=== PATIENT | female | born 1965 | race Two or more races ===

== ENCOUNTER 2017-07-06 10:28 | Observation (INO) | payer OTHER ==
[~2017-07-06] VITALS: Ht 162.6 cm; Wt 73.9 kg
[~2017-07-06 10:28] MED LIST: ALBU90OI INH; AMOCLA875 PO; CYCL10 PO; IBUP800 PO; LEVSOD100 PO; Neurontin 100100 MG PO; PRED20 PO; ZESTORETIC 20-121 EA PO
[2017-07-06 12:14] LABS: BASOPHILS ABSOLUTE AUTO 0.04 K/mm3 (0.00-0.23); BASOPHILS PERCENT AUTO 1 % (0-2); EOSINOPHILS PERCENT AUTO 6 % (0-6); Hematocrit 35.7 % (33.0-51.0); Hemoglobin 12.3 g/dL (11.5-16.0); IMMATURE GRAN ABSOLUTE AUTO 0.02 K/mm3 (0.00-0.10); IMMATURE GRAN PERCENT AUTO 0 % (0-1); LYMPHOCYTES ABSOLUTE AUTO 3.12 K/mm3 (0.84-5.20); LYMPHOCYTES PERCENT AUTO 35 % (21-46); MONOCYTES ABSOLUTE AUTO 0.54 K/mm3 (0.16-1.47); MONOCYTES PERCENT AUTO 6 % (4-13); Mean Corpuscular HGB 30.8 pg (26.0-34.0); Mean Corpuscular HGB Conc 34.5 g/dL (31.5-36.5); Mean Corpuscular Volume 89 fL (80-100); Mean Platelet Volume 8.7 fL (9.1-12.4); NEUTROPHILS ABSOLUTE AUTO 4.65 K/mm3 (1.96-9.15); NEUTROPHILS PERCENT AUTO 52 % (41-73); Platelet Count 400 K/mm3 (150-400); RDW Coefficient Variation 12.5 % (11.7-14.2); RDW Standard Deviation 40.6 fL (35.1-46.3); White Blood Cell Count 8.87 K/mm3 (4.00-11.30)
[2017-07-06 12:22] LABS: Alanine Aminotransfer (ALT/SGP 21 U/L (12-78); Albumin, Blood 3.8 g/dL (3.4-5.0); Albumin/Globulin Ratio 1.2 (0.8-1.8); Alk Phos 89 U/L (50-136); Anion Gap 5 mmol/L (6-16); Aspartate Aminotrans (AST/SGOT 17 U/L (12-37); Bilirubin, Total 0.3 mg/dL (0.1-1.0); Blood Urea Nitrogen 9 mg/dL (8-24); Bun/Creatinine Ratio 12.2 (12.0-20.0); CO2, Blood 26 mmol/L (21-32); Chloride, Blood 104 mmol/L (98-108); Creatinine, Blood 0.74 mg/dL (0.40-1.00); Globulin, Blood 3.3 g/dL (2.2-4.0); Glomerular Filtration Rate >60 (60-); Glucose, Blood 84 mg/dL (70-99); Potassium, Blood 4.2 mmol/L (3.5-5.5); Sodium, Blood 135 mmol/L (136-145); Total Protein, Blood 7.1 g/dL (6.4-8.2)
[2017-07-07] MEDS ORDERED: HYDMOR2 PO (11:55)
[2017-07-07] MEDS ORDERED: Augmentin 875-1 EACH PO (11:56)
[2017-07-07] MEDS ORDERED: ONDA4ODT PO (11:56)
[2018-03-16] MEDS ORDERED: IBUP400 PO (15:01)
== END 2017-07-07 13:30 | disposition home or self-care (01) ==
LOC: ER 10:28 → SURS 10:29 → ER 12:57 → SURS 14:26
PROVIDERS: Internal Medicine; Surgery
PROC: 0DTJ4ZZ Resection of Appendix, Percutaneous Endoscopic Approach (ICD-10-PCS; principal; 2017-07-06 16:30)
DX: K35.80 Unspecified acute appendicitis (principal); I10 Essential (primary) hypertension; J45.909 Unspecified asthma, uncomplicated; E03.9 Hypothyroidism, unspecified; F17.210 Nicotine dependence, cigarettes, uncomplicated; Z98.890 Other specified postprocedural states; Z79.899 Other long term (current) drug therapy
CPT/HCPCS: 36415; 74177; 80053; 81000; 83690; 85025; 88304; 94760; 96374; 96375; 99285; G0378; J0295; J1100; J1170; J1885; J2270; J2405; J2710; J3010; J7030; J7050; J7120; Q9967

== ENCOUNTER 2017-10-13 11:28 | Emergency (ER) | payer OTHER ==
[~2017-10-13] VITALS: Ht 162.6 cm; Wt 73.9 kg
[~2017-10-13 11:28] MED LIST changes: +Augmentin 875-1 EACH PO; +HYDMOR2 PO; +ONDA4ODT PO
[2017-10-13] MEDS ORDERED: LISI20 PO (11:55)
[2017-10-13] MEDS ORDERED: RANI150 PO (11:56)
[2017-10-13] MEDS ORDERED: BUSP15 PO (11:58)
[2017-10-13] MEDS ORDERED: OXCA150 PO (11:58)
[2017-10-13] MEDS ORDERED: VENL75ER PO (12:00)
== END 2017-10-13 14:48 | disposition home or self-care (01) ==
LOC: ER 11:28
DX: R51 Headache (principal); I10 Essential (primary) hypertension; Z88.5 Allergy status to narcotic agent; Z88.8 Allergy status to other drugs, medicaments and biological substances; Z79.899 Other long term (current) drug therapy; Z79.2 Long term (current) use of antibiotics; J45.909 Unspecified asthma, uncomplicated; F17.200 Nicotine dependence, unspecified, uncomplicated
CPT/HCPCS: 36415; 93005; 93010; 96374; 96375; 99283; J1200; J1885; J2405; J2765

== ENCOUNTER 2019-02-26 10:34 | Emergency (ER) | payer OTHER ==
[~2019-02-26] VITALS: Ht 160 cm; Wt 73.9 kg
[~2019-02-26 10:34] MED LIST changes: +BUSP15 PO; +IBUP400 PO; +LISI20 PO; +OXCA150 PO; +RANI150 PO; +VENL75ER PO
[2019-02-26] MEDS ORDERED: Synthroid137 MCG PO (10:45)
[2019-02-26] MEDS ORDERED: FLUTICASONE-SA1 EAC4 INH (10:46)
[2019-02-26] MEDS ORDERED: GABA300 PO (10:46)
[2019-02-26] MEDS ORDERED: Ranitidine HCl300 MG PO (10:47)
[2019-02-26] MEDS ORDERED: ZESTORETIC 20-251 EA PO (10:48)
[2019-02-26] MEDS ORDERED: Buspirone HCl7.5 MG PO (10:48)
[2019-02-26] MEDS ORDERED: AMLO10 PO (10:49)
[2019-02-26] MEDS ORDERED: NAPR500 PO (10:49)
[2019-02-26] MEDS ORDERED: OXCA150 PO (10:51)
== END 2019-02-26 14:05 | disposition home or self-care (01) ==
LOC: ER 10:34
DX: S09.90XA Unspecified injury of head, initial encounter (principal); S70.01XA Contusion of right hip, initial encounter; I10 Essential (primary) hypertension; F17.210 Nicotine dependence, cigarettes, uncomplicated; Z88.5 Allergy status to narcotic agent; Z88.8 Allergy status to other drugs, medicaments and biological substances; Z79.899 Other long term (current) drug therapy; W07.XXXA Fall from chair, initial encounter
CPT/HCPCS: 70450; 73502; 99284-25; A9270

== ENCOUNTER 2020-08-23 13:26 | Emergency (ER) | payer OTHER ==
[~2020-08-23] VITALS: Ht 160 cm; Wt 70.8 kg
[~2020-08-23 13:26] MED LIST changes: +AMLO10 PO; +Buspirone HCl7.5 MG PO; +FLUTICASONE-SA1 EAC4 INH; +GABA300 PO; +HYDACE25S PR; +NAPR500 PO; +ONDA4ODT MM; +Ranitidine HCl300 MG PO; +Synthroid137 MCG PO; +ZESTORETIC 20-251 EA PO
== END 2020-08-23 15:48 | disposition home or self-care (01) ==
LOC: ER 13:26
DX: S16.1XXA Strain of muscle, fascia and tendon at neck level, initial encounter (principal); I10 Essential (primary) hypertension; F17.200 Nicotine dependence, unspecified, uncomplicated; Z79.899 Other long term (current) drug therapy; Z88.5 Allergy status to narcotic agent; Z88.6 Allergy status to analgesic agent; V43.52XA Car driver injured in collision with other type car in traffic accident, initial encounter; Y92.410 Unspecified street and highway as the place of occurrence of the external cause
CPT/HCPCS: 72040; 99284-25

== ENCOUNTER → 2020-10-11 | Outpatient (CLI) | payer OTHER ==
[~2020-10-11] MED LIST changes: +Vibramycin100 MG PO
[2020-10-11 20:30] LABS: Alanine Aminotransfer (ALT/SGP 25 U/L (12-78); Albumin/Globulin Ratio 1.2 (0.8-1.8); Alk Phos 65 U/L (50-136); Anion Gap 7 mmol/L (6-16); Aspartate Aminotrans (AST/SGOT 26 U/L (12-37); Bilirubin, Total 0.4 mg/dL (0.1-1.0); Blood Urea Nitrogen 19 mg/dL (8-24); Bun/Creatinine Ratio 23.8 (12.0-20.0); CO2, Blood 26 mmol/L (21-32); Calcium, Blood 9.5 mg/dL (8.5-10.1); Chloride, Blood 104 mmol/L (98-108); Ferritin, Serum 66 ng/mL (8-252); Globulin, Blood 3.2 g/dL (2.2-4.0); Glomerular Filtration Rate >60 (60-); Glucose, Blood 114 mg/dL (70-99); Iron Serum 59 ug/dL (50-170); Percent Saturation 23.1 % (15.0-50.0); Phosphorus, Blood 3.6 mg/dL (2.5-4.9); Potassium, Blood 3.2 mmol/L (3.5-5.5); Sodium, Blood 137 mmol/L (136-145); Total Iron Binding Capacity 255 ug/dL (250-450); Total Protein, Blood 7.2 g/dL (6.4-8.2)
== END | disposition home or self-care (01) ==
LOC: PLD 19:06 → LAB SHORT 19:06
PROVIDERS: Internal Medicine Hematology & Oncology
DX: D47.3 Essential (hemorrhagic) thrombocythemia (principal)
CPT/HCPCS: 80053; 82607; 82728; 82746; 83540; 83550; 84100

== ENCOUNTER 2021-01-07 01:19 | Emergency (ER) | payer OTHER ==
[~2021-01-07] VITALS: Ht 165.1 cm; Wt 65.8 kg
[~2021-01-07 01:19] MED LIST changes: -Vibramycin100 MG PO
[2021-01-07 02:20] LABS: BASOPHILS ABSOLUTE AUTO 0.06 K/mm3 (0.00-0.23); BASOPHILS PERCENT AUTO 0 % (0-2); EOSINOPHILS ABSOLUTE AUTO 0.13 K/mm3 (0.00-0.68); EOSINOPHILS PERCENT AUTO 1 % (0-6); Hematocrit 27.8 % (33.0-51.0); Hemoglobin 9.7 g/dL (11.5-16.0); IMMATURE GRAN ABSOLUTE AUTO 0.48 K/mm3 (0.00-0.10); IMMATURE GRAN PERCENT AUTO 2 % (0-1); LYMPHOCYTES ABSOLUTE AUTO 1.92 K/mm3 (0.84-5.20); LYMPHOCYTES PERCENT AUTO 10 % (21-46); MONOCYTES ABSOLUTE AUTO 1.66 K/mm3 (0.16-1.47); MONOCYTES PERCENT AUTO 8 % (4-13); Mean Corpuscular HGB Conc 34.9 g/dL (31.5-36.5); Mean Corpuscular Volume 89 fL (80-100); Mean Platelet Volume 8.4 fL (9.1-12.4); NEUTROPHILS ABSOLUTE AUTO 15.57 K/mm3 (1.96-9.15); NEUTROPHILS PERCENT AUTO 79 % (41-73); Platelet Count 471 K/mm3 (150-400); RDW Standard Deviation 38.8 fL (35.1-46.3); Red Blood Cell Count 3.13 M/mm3 (3.80-5.20); White Blood Cell Count 19.82 K/mm3 (4.00-11.30)
[2021-01-07 02:38] LABS: Source, Urine Clean Catch
[2021-01-07 02:38] LABS: Alanine Aminotransfer (ALT/SGP 15 U/L (12-78); Albumin, Blood 3.2 g/dL (3.4-5.0); Albumin/Globulin Ratio 0.8 (0.8-1.8); Alk Phos 74 U/L (50-136); Anion Gap 9 mmol/L (6-16); Aspartate Aminotrans (AST/SGOT 13 U/L (12-37); Bilirubin, Total 0.4 mg/dL (0.1-1.0); Blood Urea Nitrogen 10 mg/dL (8-24); CO2, Blood 23 mmol/L (21-32); Calcium, Blood 8.7 mg/dL (8.5-10.1); Chloride, Blood 91 mmol/L (98-108); Creatinine, Blood 0.67 mg/dL (0.40-1.00); Glomerular Filtration Rate >60 (60-); Glucose, Blood 142 mg/dL (70-99); Potassium, Blood 3.6 mmol/L (3.5-5.5); Sodium, Blood 123 mmol/L (136-145); Total Protein, Blood 7.2 g/dL (6.4-8.2)
[2021-01-07 02:42] LABS: Appearance, Urine Clear (Clear); Bilirubin, Urine Neg (Neg); Blood, Urine Neg (Neg); Color, Urine Yellow (P-Yellow); Glucose Qualitative, Urine Neg (Neg); Ketones, Urine Neg (Neg); Leukocyte Esterase, Urine 1+ (Neg); Nitrite, Urine Neg (Neg); Protein, Urine 1+ (Neg); Urobilinogen, Urine NORM (Normal)
[2021-01-07 02:48] LABS: Bacteria Mod /hpf; Red Blood Cells, Urine 0-2 /hpf (0-2); Squamous Epithelial Cells Many /hpf (Few)
[2021-01-07] MEDS ORDERED: Vibramycin100 MG PO (06:01)
== END 2021-01-07 06:40 | disposition home or self-care (01) ==
LOC: ER 01:19
PROVIDERS: Student in an Organized Health Care Education/Training Program
DX: R10.11 Right upper quadrant pain (principal); I10 Essential (primary) hypertension; F17.200 Nicotine dependence, unspecified, uncomplicated; Z88.6 Allergy status to analgesic agent; Z88.5 Allergy status to narcotic agent
CPT/HCPCS: 71045; 74177; 76705; 80053; 81001; 83690; 85025; 87086; 96374-59; 96375; 99284-25; A9270; J1885; J2270; Q9967

== ENCOUNTER 2021-02-09 12:51 | Inpatient (IN) | payer MEDICARE, OTHER ==
[~2021-02-09] VITALS: Ht 160 cm; Wt 68.0 kg
[~2021-02-09 12:51] MED LIST changes: -ALBU90OI INH; -AMLO10 PO; -Buspirone HCl7.5 MG PO; -FLUTICASONE-SA1 EAC4 INH; -GABA300 PO; -OXCA150 PO; -Synthroid137 MCG PO; -VENL75ER PO; +Vibramycin100 MG PO; -ZESTORETIC 20-251 EA PO
[2021-02-09] MEDS ORDERED: ACYC400 PO (13:27)
[2021-02-09] MEDS ORDERED: VENL75ER PO ×2 (13:33→15:45)
[2021-02-09 14:23] LABS: BASOPHILS ABSOLUTE AUTO 0.07 K/mm3 (0.00-0.23); BASOPHILS PERCENT AUTO 0 % (0-2); EOSINOPHILS ABSOLUTE AUTO 0.45 K/mm3 (0.00-0.68); EOSINOPHILS PERCENT AUTO 2 % (0-6); Hematocrit 27.6 % (33.0-51.0); Hemoglobin 9.1 g/dL (11.5-16.0); IMMATURE GRAN ABSOLUTE AUTO 0.09 K/mm3 (0.00-0.10); IMMATURE GRAN PERCENT AUTO 1 % (0-1); LYMPHOCYTES ABSOLUTE AUTO 1.75 K/mm3 (0.84-5.20); LYMPHOCYTES PERCENT AUTO 9 % (21-46); MONOCYTES ABSOLUTE AUTO 1.26 K/mm3 (0.16-1.47); MONOCYTES PERCENT AUTO 6 % (4-13); Mean Corpuscular Volume 94 fL (80-100); Mean Platelet Volume 8.9 fL (9.1-12.4); NEUTROPHILS ABSOLUTE AUTO 16.04 K/mm3 (1.96-9.15); NEUTROPHILS PERCENT AUTO 82 % (41-73); Platelet Count 466 K/mm3 (150-400); RDW Coefficient Variation 13.1 % (11.7-14.2); RDW Standard Deviation 44.9 fL (35.1-46.3); Red Blood Cell Count 2.94 M/mm3 (3.80-5.20); White Blood Cell Count 19.66 K/mm3 (4.00-11.30)
[2021-02-09 14:45] LABS: Alanine Aminotransfer (ALT/SGP 18 U/L (12-78); Albumin, Blood 3.1 g/dL (3.4-5.0); Albumin/Globulin Ratio 0.7 (0.8-1.8); Alk Phos 84 U/L (50-136); Anion Gap 6 mmol/L (6-16); Aspartate Aminotrans (AST/SGOT 13 U/L (12-37); Bilirubin, Total 0.5 mg/dL (0.1-1.0); Blood Urea Nitrogen 24 mg/dL (8-24); Bun/Creatinine Ratio 18.5 (12.0-20.0); CO2, Blood 26 mmol/L (21-32); Calcium, Blood 8.6 mg/dL (8.5-10.1); Chloride, Blood 101 mmol/L (98-108); Ethanol (Alcohol), Blood, Med <3 mg/dL; Globulin, Blood 4.2 g/dL (2.2-4.0); Glomerular Filtration Rate 42 (60-); Glucose, Blood 111 mg/dL (70-99); Potassium, Blood 4.4 mmol/L (3.5-5.5); Sodium, Blood 133 mmol/L (136-145); Total Protein, Blood 7.3 g/dL (6.4-8.2)
[2021-02-09 14:50] LABS: Base Excess Venous -0.1 mmol/L; PO2 Venous 60.3 mmHg (38-42); pH Blood Venous 7.32 (7.34-7.37)
[2021-02-09] MEDS ORDERED: OXYC10TA19 PO (15:28)
[2021-02-09] MEDS ORDERED: CYCL10 PO (15:29)
[2021-02-09] MEDS ORDERED: OMEP20ER PO (15:30)
[2021-02-09] MEDS ORDERED: Cetirizine HCl10 MG PO (15:31)
[2021-02-09] MEDS ORDERED: FLUTICASONE-SA1 EAC9 INH (15:32)
[2021-02-09] MEDS ORDERED: OXCARBAZEPINE150 M1 PO ×2 (15:33)
[2021-02-09] MEDS ORDERED: PREMPRO PO (15:35)
[2021-02-09] MEDS ORDERED: SPIR25 PO (15:36)
[2021-02-09] MEDS ORDERED: GABA300 PO (15:37)
[2021-02-09] MEDS ORDERED: ESCI10 PO (15:37)
[2021-02-09] MEDS ORDERED: Buspirone HCl7.5 MG PO (15:37)
[2021-02-09] MEDS ORDERED: LEVSOD112 PO (15:40)
[2021-02-09] MEDS ORDERED: ALBU90OI INH (15:46)
[2021-02-09] MEDS ORDERED: AMLO10 PO (15:48)
[2021-02-09] MEDS ORDERED: ZESTORETIC 20-251 EA PO (15:49)
[2021-02-09] MEDS ORDERED: NAPR500 PO (15:50)
[2021-02-09 17:15] LABS: Source, Urine Clean Catch
[2021-02-09 17:20] LABS: Appearance, Urine Hazy (Clear); Blood, Urine Neg (Neg); Color, Urine Yellow (P-Yellow); Glucose Qualitative, Urine Neg (Neg); Ketones, Urine Neg (Neg); Leukocyte Esterase, Urine 1+ (Neg); Nitrite, Urine Neg (Neg); Protein, Urine 1+ (Neg); Urobilinogen, Urine NORM (Normal)
[2021-02-09 17:48] LABS: SARS-Cov-2 (COVID-19) PCR, MMC NEGATIVE (NEGATIVE)
[2021-02-09 18:09] LABS: Bilirubin, Urine 1+ (Neg)
[2021-02-09 18:12] LABS: Bacteria Mod /hpf; Calcium Oxalate Crystals Rare /hpf; Red Blood Cells, Urine Not Seen /hpf (0-2); Squamous Epithelial Cells Mod /hpf (Few)
[2021-02-09 18:38] LABS: U Amphetamine Screen DETECTED; U Barbituate Screen Not Detected; U Benzodiazapine Screen Not Detected; U Buprenorphine Screen Not Detected; U Cannabinoids Screen Not Detected; U Cocaine Screen Not Detected; U Methadone Screen Not Detected; U Methamphetamine Screen DETECTED; U Opiates Screen Not Detected; U Oxycodone Screen DETECTED; U Phencyclidine Screen Not Detected; U Propoxyphene Screen Not Detected
[2021-02-10 00:21] LABS: Adenovirus Not Detected (NOT DETECT); Bordetella pertussis Not Detected (NOT DETECT); Chlamydophila pneumoniae Not Detected (NOT DETECT); Coronavirus 229E Not Detected (NOT DETECT); Coronavirus HKU1 Not Detected (NOT DETECT); Coronavirus NL63 Not Detected (NOT DETECT); Coronavirus OC43 Not Detected (NOT DETECT); Human Metapneumovirus Not Detected (NOT DETECT); Human Rhinovirus/Enterovirus Not Detected (NOT DETECT); Influenza A/2009-H1 Not Detected (NOT DETECT); Influenza A/H1 Not Detected (NOT DETECT); Influenza A/H3 Not Detected (NOT DETECT); Influenza B Not Detected (NOT DETECT); Mycoplasma pneumoniae Not Detected (NOT DETECT); Parainfluenza Virus 1 Not Detected (NOT DETECT); Parainfluenza Virus 2 Not Detected (NOT DETECT); Parainfluenza Virus 3 Not Detected (NOT DETECT); Parainfluenza Virus 4 Not Detected (NOT DETECT); Respiratory Syncytial Virus Not Detected (NOT DETECT); SARS-Cov-2 (COVID-19), BioFire Not Detected (NOT DETECT)
[2021-02-10 05:53] LABS: Hematocrit 26.5 % (33.0-51.0); Hemoglobin 8.7 g/dL (11.5-16.0); Mean Corpuscular HGB 30.6 pg (26.0-34.0); Mean Corpuscular HGB Conc 32.8 g/dL (31.5-36.5); Mean Corpuscular Volume 93 fL (80-100); Mean Platelet Volume 8.7 fL (9.1-12.4); Platelet Count 440 K/mm3 (150-400); RDW Coefficient Variation 12.4 % (11.7-14.2); RDW Standard Deviation 42.8 fL (35.1-46.3); Red Blood Cell Count 2.84 M/mm3 (3.80-5.20); White Blood Cell Count 23.97 K/mm3 (4.00-11.30)
--- NOTE | 2021-02-10 05:55 | NUR ---
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 PT AAOX4, VERY SLEEPY THROUGH THE NIGHT BUT WAKES UP EASILY AND IS ABLE TO CONVERSE AND MAKE NEEDS KNOWN APPROPRIATELY. DENIES COUGH. PT STATES SHE FEELS MUCH IMPROVED AND REPORTED THAT PRIOR TO ADMISSION SHE WAS "VERY LOOPY AND COULD BARELY GET OUT OF BED". PT IS A STANDBY ASSIST UP TO THE BATHROOM. VSS, WILL CONTINUE TO MONITOR.
[2021-02-10 06:11] LABS: BAND PERCENT MAN 15 % (0-8); BASOPHILS PERCENT MAN 0 % (0-2); EOSINOPHILS PERCENT MAN 0 % (0-6); LYMPHOCYTES ABSOLUTE MAN 0.71 K/mm3 (0.84-5.20); LYMPHOCYTES PERCENT MAN 3 % (21-46); MONOCYTES ABSOLUTE MAN 0.47 K/mm3 (0.16-1.47); MONOCYTES PERCENT MAN 2 % (4-13); NEUTROPHILS ABSOLUTE MAN 22.77 K/mm3 (1.96-9.15); SEG NEUTROPHILS PERCENT MAN 80 % (41-73); TOTAL CELLS COUNTED 100
[2021-02-10 06:22] LABS: Anion Gap 6 mmol/L (6-16); Blood Urea Nitrogen 22 mg/dL (8-24); Bun/Creatinine Ratio 28.7 (12.0-20.0); CO2, Blood 22 mmol/L (21-32); Calcium, Blood 7.9 mg/dL (8.5-10.1); Chloride, Blood 106 mmol/L (98-108); Creatinine, Blood 0.77 mg/dL (0.40-1.00); Glomerular Filtration Rate >60 (60-); Glucose, Blood 110 mg/dL (70-99); Potassium, Blood 4.7 mmol/L (3.5-5.5); Sodium, Blood 134 mmol/L (136-145); Thyroid Stimulating Hormone 0.179 uIU/mL (0.360-4.800)
[2021-02-10 14:30] LABS: BASOPHILS ABSOLUTE AUTO 0.05 K/mm3 (0.00-0.23); BASOPHILS PERCENT AUTO 0 % (0-2); EOSINOPHILS ABSOLUTE AUTO 0.06 K/mm3 (0.00-0.68); EOSINOPHILS PERCENT AUTO 0 % (0-6); Hematocrit 26.1 % (33.0-51.0); Hemoglobin 8.5 g/dL (11.5-16.0); IMMATURE GRAN ABSOLUTE AUTO 0.31 K/mm3 (0.00-0.10); IMMATURE GRAN PERCENT AUTO 1 % (0-1); LYMPHOCYTES ABSOLUTE AUTO 2.19 K/mm3 (0.84-5.20); LYMPHOCYTES PERCENT AUTO 8 % (21-46); MONOCYTES ABSOLUTE AUTO 1.09 K/mm3 (0.16-1.47); MONOCYTES PERCENT AUTO 4 % (4-13); Mean Corpuscular HGB 30.2 pg (26.0-34.0); Mean Corpuscular HGB Conc 32.6 g/dL (31.5-36.5); Mean Corpuscular Volume 93 fL (80-100); Mean Platelet Volume 8.9 fL (9.1-12.4); NEUTROPHILS ABSOLUTE AUTO 23.82 K/mm3 (1.96-9.15); NEUTROPHILS PERCENT AUTO 87 % (41-73); Platelet Count 456 K/mm3 (150-400); RDW Coefficient Variation 12.8 % (11.7-14.2); RDW Standard Deviation 43.9 fL (35.1-46.3); Red Blood Cell Count 2.81 M/mm3 (3.80-5.20); White Blood Cell Count 27.52 K/mm3 (4.00-11.30)
--- NOTE | 2021-02-10 18:16 | NUR ---
SHIFT SUMMARY NO ACUTE CHANGES DURING SHIFT. PT ALERT AND ORIENTATED X4. PATIENT HAS BEEN SLEEPY THROUGHOUT SHIFT. PATIENT HAS AMBULATED ABOUT 50 FEET WITH PULSE OX NOT GOING UNDER 96%. NOTIFIED DR GEORGE OF RESULTS. PATIENT WEAK THROUGHOUT AMBULATION. VITAL SIGNS REVIEWED. PATIENT IS A STANDBY ASSIST UP TO THE BATHROOM. WILL CONTINUE TO MONITOR UNTIL END OF SHIFT.
--- NOTE | 2021-02-11 04:47 | NUR ---
SHIFT SUMMARY ADMITTED FOR PNEUMONIA/WEAKNESS. FULL CODE. PLAN IS TO RE-CHECK ELEVATED WBC LABS. IF THEY ARE TRENDING DOWN, SHE MAY DC TODAY. IV ANTIBIOTICS ARE SCHEDULED. SHE IS ON RA. SHE USES A FWW @ HOME. SHE IS A STANDBY ASSIST W/BRP. SHE IS A&O X4. REGULAR DIET. NO NEW CONCERNS THIS SHIFT.
[2021-02-11 05:32] LABS: Hematocrit 26.3 % (33.0-51.0); Hemoglobin 8.7 g/dL (11.5-16.0); Mean Corpuscular HGB 30.3 pg (26.0-34.0); Mean Corpuscular HGB Conc 33.1 g/dL (31.5-36.5); Mean Corpuscular Volume 92 fL (80-100); Mean Platelet Volume 8.7 fL (9.1-12.4); Platelet Count 453 K/mm3 (150-400); RDW Coefficient Variation 12.6 % (11.7-14.2); RDW Standard Deviation 42.5 fL (35.1-46.3); Red Blood Cell Count 2.87 M/mm3 (3.80-5.20); White Blood Cell Count 18.95 K/mm3 (4.00-11.30)
[2021-02-11 05:56] LABS: BAND PERCENT MAN 2 % (0-8); BASOPHILS ABSOLUTE MAN 0.37 K/mm3 (0.00-0.23); BASOPHILS PERCENT MAN 2 % (0-2); EOSINOPHILS ABSOLUTE MAN 0.56 K/mm3 (0.00-0.68); EOSINOPHILS PERCENT MAN 3 % (0-6); LYMPHOCYTES ABSOLUTE MAN 3.79 K/mm3 (0.84-5.20); LYMPHOCYTES PERCENT MAN 20 % (21-46); MONOCYTES ABSOLUTE MAN 0.37 K/mm3 (0.16-1.47); MONOCYTES PERCENT MAN 2 % (4-13); NEUTROPHILS ABSOLUTE MAN 13.83 K/mm3 (1.96-9.15); SEG NEUTROPHILS PERCENT MAN 71 % (41-73); TOTAL CELLS COUNTED 100
[2021-02-11 06:06] LABS: Anion Gap 5 mmol/L (6-16); Blood Urea Nitrogen 18 mg/dL (8-24); Bun/Creatinine Ratio 24.7 (12.0-20.0); CO2, Blood 24 mmol/L (21-32); Chloride, Blood 105 mmol/L (98-108); Creatinine, Blood 0.73 mg/dL (0.40-1.00); Glomerular Filtration Rate >60 (60-); Glucose, Blood 90 mg/dL (70-99); Potassium, Blood 4.1 mmol/L (3.5-5.5); Sodium, Blood 134 mmol/L (136-145)
[2021-02-11] MEDS ORDERED: VISBIOME 112.51 EACH PO (11:41)
[2021-02-11] MEDS ORDERED: DOXY100 PO (11:42)
--- NOTE | 2021-02-11 14:39 | NUR ---
1419 PT DISCHARGED HOME VIA PERSONAL VEHICLE ACCOMPANIED AND DRIVEN BY FAMILY. ESCORTED TO ENTRANCE BY CARRY OUT CLERK AND SHELF STOCKER. IV REMOVED. D/C INSTRUCTIONS REVIEWED WITH PT AND COPY PROVIDED. LUNGS CLEAR ON RA. NO NEW CHANGES OR CONCERNS.
== END 2021-02-11 14:18 | disposition home or self-care (01) | DRG 871 ==
LOC: ER 12:51 → MEDS 18:18 → ERHOLD 18:18 → MEDS 18:45
PROVIDERS: Internal Medicine; Student in an Organized Health Care Education/Training Program; ADMIT Internal Medicine
DX: A41.9 Sepsis, unspecified organism (principal); J18.9 Pneumonia, unspecified organism; G92 Toxic encephalopathy; J44.0 Chronic obstructive pulmonary disease with (acute) lower respiratory infection; N17.9 Acute kidney failure, unspecified; J44.1 Chronic obstructive pulmonary disease with (acute) exacerbation; E87.2 Acidosis; E87.1 Hypo-osmolality and hyponatremia; T43.621A Poisoning by amphetamines, accidental (unintentional), initial encounter; G89.29 Other chronic pain; E86.0 Dehydration; Z20.822 Contact with and (suspected) exposure to COVID-19; E86.1 Hypovolemia; F43.10 Post-traumatic stress disorder, unspecified; F41.9 Anxiety disorder, unspecified; I12.9 Hypertensive chronic kidney disease with stage 1 through stage 4 chronic kidney disease, or unspecified chronic kidney disease; I95.89 Other hypotension; E03.9 Hypothyroidism, unspecified; F32.9 Major depressive disorder, single episode, unspecified; R65.20 Severe sepsis without septic shock; D72.829 Elevated white blood cell count, unspecified; T38.0X5A Adverse effect of glucocorticoids and synthetic analogues, initial encounter; F15.10 Other stimulant abuse, uncomplicated; D63.1 Anemia in chronic kidney disease; R47.81 Slurred speech; N18.9 Chronic kidney disease, unspecified; Z88.6 Allergy status to analgesic agent; Z88.5 Allergy status to narcotic agent; Z98.890 Other specified postprocedural states; Z79.899 Other long term (current) drug therapy; Z79.51 Long term (current) use of inhaled steroids; Z90.49 Acquired absence of other specified parts of digestive tract; Z87.891 Personal history of nicotine dependence; Z79.891 Long term (current) use of opiate analgesic
CPT/HCPCS: 0202U; 36415; 71045; 80048; 80053; 81001; 82803; 82947; 83605; 84145; 84443; 85007; 85025; 85027; 87040; 87086; 93005; 93010; 94640; 94664; 94760; 96361; 96365; 96375; 99285-25; A9270; G0480; J0696; J1650; J2310; J2930; J7030; J7060; U0004

== ENCOUNTER 2022-08-11 20:58 | Inpatient (IN) | payer MEDICARE, OTHER ==
[~2022-08-11] VITALS: Ht 160 cm; Wt 84.5 kg
[~2022-08-11 20:58] MED LIST changes: +ACYC400 PO; +ALBU90OI INH; +AMLO10 PO; +Buspirone HCl7.5 MG PO; +Cetirizine HCl10 MG PO; +DOXY100 PO; +ESCI10 PO; +FLUTICASONE-SA1 EAC9 INH; +GABA300 PO; +LEVSOD112 PO; +OMEP20ER PO; +OXCARBAZEPINE150 M1 PO; +OXYC10TA19 PO; +PREMPRO PO; +SPIR25 PO; +VENL75ER PO; +VISBIOME 112.51 EACH PO; +ZESTORETIC 20-251 EA PO
[2022-08-11 21:44] LABS: BASOPHILS ABSOLUTE AUTO 0.08 K/mm3 (0.00-0.23); BASOPHILS PERCENT AUTO 1 % (0-2); EOSINOPHILS ABSOLUTE AUTO 0.45 K/mm3 (0.00-0.68); EOSINOPHILS PERCENT AUTO 3 % (0-6); Hematocrit 33.4 % (33.0-51.0); IMMATURE GRAN ABSOLUTE AUTO 0.22 K/mm3 (0.00-0.10); IMMATURE GRAN PERCENT AUTO 1 % (0-1); LYMPHOCYTES ABSOLUTE AUTO 2.89 K/mm3 (0.84-5.20); LYMPHOCYTES PERCENT AUTO 18 % (21-46); MONOCYTES ABSOLUTE AUTO 1.22 K/mm3 (0.16-1.47); MONOCYTES PERCENT AUTO 8 % (4-13); Mean Corpuscular HGB 30.6 pg (26.0-34.0); Mean Corpuscular HGB Conc 35.9 g/dL (31.5-36.5); Mean Corpuscular Volume 85 fL (80-100); Mean Platelet Volume 8.2 fL (9.1-12.4); NEUTROPHILS ABSOLUTE AUTO 11.13 K/mm3 (1.96-9.15); NEUTROPHILS PERCENT AUTO 70 % (41-73); Platelet Count 528 K/mm3 (150-400); RDW Coefficient Variation 11.9 % (11.7-14.2); RDW Standard Deviation 36.9 fL (35.1-46.3); Red Blood Cell Count 3.92 M/mm3 (3.80-5.20); White Blood Cell Count 15.99 K/mm3 (4.00-11.30)
[2022-08-11 21:58] LABS: Albumin, Blood 3.7 g/dL (3.4-5.0); Bilirubin, Total 0.2 mg/dL (0.1-1.0); Calcium, Blood 9.2 mg/dL (8.5-10.1); Creatinine, Blood 0.59 mg/dL (0.40-1.00); Globulin, Blood 3.8 g/dL (2.2-4.0); Potassium, Blood 4.5 mmol/L (3.5-5.5); Total Protein, Blood 7.5 g/dL (6.4-8.2)
--- NOTE | 2022-08-12 00:40 | NUR ---
PT ARRIVED TO MEDICAL FLOOR AT 0030 ESCORTED BY AILENE PITTS. SOME C/O BACK AND NECK PAIN, BETTER WHEN IN BED AND ELEVATED. ACCEPTED OFFER OF HEATING PAD. REGULAR DIET, 1-2PA AMBULATION. TELE ORDERED. LABS TO BE DRAWN IN AM.
[2022-08-12 01:12] LABS: Free Thyroxine 1.28 ng/dL (0.70-1.60)
[2022-08-12 01:14] LABS: Thyroid Stimulating Hormone 15.2 uIU/mL (0.360-4.800)
[2022-08-12 06:03] LABS: BASOPHILS ABSOLUTE AUTO 0.06 K/mm3 (0.00-0.23); BASOPHILS PERCENT AUTO 0 % (0-2); EOSINOPHILS ABSOLUTE AUTO 0.48 K/mm3 (0.00-0.68); EOSINOPHILS PERCENT AUTO 3 % (0-6); Hematocrit 32.5 % (33.0-51.0); Hemoglobin 11.5 g/dL (11.5-16.0); IMMATURE GRAN ABSOLUTE AUTO 0.13 K/mm3 (0.00-0.10); IMMATURE GRAN PERCENT AUTO 1 % (0-1); LYMPHOCYTES ABSOLUTE AUTO 3.12 K/mm3 (0.84-5.20); LYMPHOCYTES PERCENT AUTO 22 % (21-46); MONOCYTES ABSOLUTE AUTO 0.92 K/mm3 (0.16-1.47); MONOCYTES PERCENT AUTO 6 % (4-13); Mean Corpuscular HGB 30.7 pg (26.0-34.0); Mean Corpuscular HGB Conc 35.4 g/dL (31.5-36.5); Mean Corpuscular Volume 87 fL (80-100); Mean Platelet Volume 8.2 fL (9.1-12.4); NEUTROPHILS ABSOLUTE AUTO 9.63 K/mm3 (1.96-9.15); NEUTROPHILS PERCENT AUTO 67 % (41-73); Platelet Count 480 K/mm3 (150-400); RDW Standard Deviation 38.2 fL (35.1-46.3); Red Blood Cell Count 3.74 M/mm3 (3.80-5.20); White Blood Cell Count 14.34 K/mm3 (4.00-11.30)
[2022-08-12 06:55] LABS: Albumin, Blood 3.3 g/dL (3.4-5.0); Albumin/Globulin Ratio 0.9 (0.8-1.8); Bilirubin, Total 0.2 mg/dL (0.1-1.0); Bun/Creatinine Ratio 12.9 (12.0-20.0); Creatinine, Blood 0.7 mg/dL (0.40-1.00); Globulin, Blood 3.5 g/dL (2.2-4.0); Potassium, Blood 4.6 mmol/L (3.5-5.5); Total Protein, Blood 6.8 g/dL (6.4-8.2)
--- NOTE | 2022-08-12 07:08 | NUR ---
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 PLEASANT AND COOPERATIVE WITH CARE. CALLS APPROPRIATELY AND IS ABLE TO COMMUNICATE NEEDS EFFECTIVELY. FLUIDS STARTED LAST NIGHT. 1PA w/GB&FWW. MEDICATED FENTANYL x1 AND PROVIDED HEATING PAD FOR C/O NECK AND BACK PAIN. SODIUM SAME LEVEL ADMITTING LEVEL LAST NIGHT (CRITICAL VALUE OF 118). DAY SHIFT RN WILL DISCUSS WITH PROVIDER. STARTED LOWERED DOSE OF SYNTHROID THIS AM. REPORT TO ONCOMING RN.
[2022-08-12 13:49] LABS: Creatinine, Blood 0.69 mg/dL (0.40-1.00); Potassium, Blood 4.5 mmol/L (3.5-5.5)
--- NOTE | 2022-08-12 17:03 | NUR ---
SHIFT SUMMARY NO ACUTE CHANGES THIS SHIFT. THE PT C/O BELLA AND WAS MEDICATED PER THE EMAR. SHE HAS BEEN SLEEPING MOST OF THE SHIFT. SHE CAN AMBULATE TO THE RESTROOM USING A WALKER. NO C/O N/V/CP. WILL REPORT TO ONCOMING NURSE.
[2022-08-12 20:07] LABS: Calcium, Blood 9.1 mg/dL (8.5-10.1); Creatinine, Blood 0.72 mg/dL (0.40-1.00); Potassium, Blood 4.2 mmol/L (3.5-5.5)
[2022-08-13 01:56] LABS: Bun/Creatinine Ratio 15.4 (12.0-20.0); Calcium, Blood 9.1 mg/dL (8.5-10.1); Creatinine, Blood 0.72 mg/dL (0.40-1.00); Potassium, Blood 4.7 mmol/L (3.5-5.5)
--- NOTE | 2022-08-13 07:14 | NUR ---
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 PLEASANT AND COOPERATIVE WITH CARE. CALLS APPROPRIATELY AND IS ABLE TO COMMUNICATE NEEDS EFFECTIVELY. MEDICATED x1 PRN TRAMADOL FOR NECK PAIN. VSS. TELE NORMAL SINUS RHYTHM. NO ACUTE CONCERNS T/O THE NIGHT. LABS DRAWN AND NO CRITICAL RESULTS RECEIVED. SODIUM LEVEL UP TO 124. CONTINUES TO C/O DIZZINESS AND UTILIZES SBA FOR AMBULATION. WILL REPORT TO ONCOMING RN.
[2022-08-13 08:47] LABS: Bun/Creatinine Ratio 15.1 (12.0-20.0); Calcium, Blood 9.3 mg/dL (8.5-10.1); Creatinine, Blood 0.66 mg/dL (0.40-1.00); Potassium, Blood 4.6 mmol/L (3.5-5.5)
--- NOTE | 2022-08-13 10:21 | NUR ---
DISCHARGE NOTE PT DISCHARAGED TO HOME, HER CAREGIVER IS PICKING HER UP. BALANCE TRUER TOOK HER TO THE CAREGIVERS VEHICLE BY WHEELCHAIR. IV AND TELE REMOVED. EDUCATIONS AND DISCHARGE INSTRUCTIONS PROVIDED. PERSONAL BELONGINGS GATHERED AND RETURNED.
== END 2022-08-13 10:18 | disposition home or self-care (01) | DRG 645 ==
LOC: ER 20:58 → MEDS 20:59
PROVIDERS: Internal Medicine; Student in an Organized Health Care Education/Training Program; ADMIT Internal Medicine
DX: E22.2 Syndrome of inappropriate secretion of antidiuretic hormone (principal); S00.83XA Contusion of other part of head, initial encounter; S10.93XA Contusion of unspecified part of neck, initial encounter; J44.9 Chronic obstructive pulmonary disease, unspecified; E03.9 Hypothyroidism, unspecified; F32.A Depression, unspecified; G89.29 Other chronic pain; F43.10 Post-traumatic stress disorder, unspecified; F41.9 Anxiety disorder, unspecified; N18.9 Chronic kidney disease, unspecified; I12.9 Hypertensive chronic kidney disease with stage 1 through stage 4 chronic kidney disease, or unspecified chronic kidney disease; K21.9 Gastro-esophageal reflux disease without esophagitis; F17.210 Nicotine dependence, cigarettes, uncomplicated; M54.9 Dorsalgia, unspecified; M25.559 Pain in unspecified hip; G62.9 Polyneuropathy, unspecified; W18.09XA Striking against other object with subsequent fall, initial encounter; Z88.8 Allergy status to other drugs, medicaments and biological substances; Z88.5 Allergy status to narcotic agent; Z79.899 Other long term (current) drug therapy; Z79.891 Long term (current) use of opiate analgesic; Z79.52 Long term (current) use of systemic steroids; Z79.51 Long term (current) use of inhaled steroids; Z79.811 Long term (current) use of aromatase inhibitors; Z79.2 Long term (current) use of antibiotics; Z98.890 Other specified postprocedural states; Z86.79 Personal history of other diseases of the circulatory system
CPT/HCPCS: 36415; 70450; 71045; 72125; 73522; 80048; 80053; 83880; 84439; 84443; 85025; 93005; 93010; 94640; 94664; 94760; 96361; 96372; 96374; 96375; 99285-25; A9270; G0378; J1650; J1885; J2270; J2405; J3010; J7030

== ENCOUNTER 2023-01-04 11:18 | Emergency (ER) | payer MEDICARE, OTHER ==
[~2023-01-04] VITALS: Ht 160 cm; Wt 86.2 kg
[~2023-01-04 11:18] MED LIST changes: +ANORO ELLIPTA1 EACH INH; +CELE200 PO; +FURO20 PO; +LEVSOD137 PO; +LIDO700A20 TOP; +PRAMIPEXOLE0.125 M1 PO; +VENLAFAXINE; +[UNRECOGNIZED DRUG - CODE] PO
[2023-01-04] MEDS ORDERED: PREGABALIN75 MG (16:03)
[2023-01-04] MEDS ORDERED: LYRICA75 M1 PO ×2 (16:04)
[2023-01-04 17:46] VITALS: BP 134/75
== END 2023-01-04 17:46 | disposition home or self-care (01) ==
LOC: ER 11:18
DX: M51.16 Intervertebral disc disorders with radiculopathy, lumbar region (principal); M48.061 Spinal stenosis, lumbar region without neurogenic claudication; G89.29 Other chronic pain; I10 Essential (primary) hypertension; B19.20 Unspecified viral hepatitis C without hepatic coma; J44.9 Chronic obstructive pulmonary disease, unspecified; E03.9 Hypothyroidism, unspecified; K21.9 Gastro-esophageal reflux disease without esophagitis; F17.210 Nicotine dependence, cigarettes, uncomplicated; Z86.73 Personal history of transient ischemic attack (TIA), and cerebral infarction without residual deficits; Z88.6 Allergy status to analgesic agent; Z88.8 Allergy status to other drugs, medicaments and biological substances; Z79.899 Other long term (current) drug therapy; W18.30XA Fall on same level, unspecified, initial encounter
CPT/HCPCS: 72131; 96372; 99284-25; A9270; J1170

== ENCOUNTER 2023-01-06 06:23 | Emergency (ER) | payer MEDICARE, OTHER ==
[~2023-01-06] VITALS: Ht 160 cm; Wt 86.2 kg
[~2023-01-06 06:23] MED LIST changes: +LYRICA75 M1 PO; +PREGABALIN75 MG
[2023-01-06 07:14] LABS: Bun/Creatinine Ratio 24.5 (12.0-20.0); Creatinine, Blood 0.65 mg/dL (0.40-1.00); Potassium, Blood 4.8 mmol/L (3.5-5.5)
[2023-01-06 10:45] VITALS: BP 148/73
== END 2023-01-06 11:14 | disposition home or self-care (01) ==
LOC: ER 06:23
PROVIDERS: Emergency Medicine
DX: M79.604 Pain in right leg (principal); M79.605 Pain in left leg; E87.1 Hypo-osmolality and hyponatremia; G89.29 Other chronic pain; M79.2 Neuralgia and neuritis, unspecified; Z88.8 Allergy status to other drugs, medicaments and biological substances; Z88.1 Allergy status to other antibiotic agents; Z79.899 Other long term (current) drug therapy; F17.210 Nicotine dependence, cigarettes, uncomplicated; I10 Essential (primary) hypertension; J44.9 Chronic obstructive pulmonary disease, unspecified; E03.9 Hypothyroidism, unspecified; K21.9 Gastro-esophageal reflux disease without esophagitis
CPT/HCPCS: 36415; 80048; 96361; 96374; 99284-25; J1885; J7030

== ENCOUNTER 2023-01-09 23:13 | Inpatient (IN) | payer MEDICARE, OTHER ==
[~2023-01-09] VITALS: Ht 162.6 cm; Wt 67.4 kg
[2023-01-10 00:02] LABS: Source, Urine Straight Cath
[2023-01-10 00:24] LABS: Bilirubin, Urine Neg (Neg); Blood, Urine 1+ (Neg); Glucose Qualitative, Urine Neg (Neg); Ketones, Urine Neg (Neg); Leukocyte Esterase, Urine 2+ (Neg); Nitrite, Urine Neg (Neg); Protein, Urine 2+ (Neg); Urobilinogen, Urine NORM (Normal)
[2023-01-10 00:28] LABS: BASOPHILS ABSOLUTE AUTO 0.08 K/mm3 (0.00-0.23); BASOPHILS PERCENT AUTO 1 % (0-2); EOSINOPHILS ABSOLUTE AUTO 0.42 K/mm3 (0.00-0.68); EOSINOPHILS PERCENT AUTO 3 % (0-6); Hemoglobin 11.4 g/dL (11.5-16.0); IMMATURE GRAN ABSOLUTE AUTO 0.04 K/mm3 (0.00-0.10); IMMATURE GRAN PERCENT AUTO 0 % (0-1); LYMPHOCYTES ABSOLUTE AUTO 1.73 K/mm3 (0.84-5.20); LYMPHOCYTES PERCENT AUTO 12 % (21-46); MONOCYTES ABSOLUTE AUTO 0.95 K/mm3 (0.16-1.47); MONOCYTES PERCENT AUTO 7 % (4-13); Mean Corpuscular HGB Conc 35.6 g/dL (31.5-36.5); Mean Corpuscular Volume 84 fL (80-100); Mean Platelet Volume 8.2 fL (9.1-12.4); NEUTROPHILS PERCENT AUTO 77 % (41-73); Platelet Count 519 K/mm3 (150-400); RDW Coefficient Variation 11.9 % (11.7-14.2); RDW Standard Deviation 36.5 fL (35.1-46.3); White Blood Cell Count 14.02 K/mm3 (4.00-11.30)
[2023-01-10 00:37] LABS: Base Excess Venous 3.4 mmol/L; Bicarbonate Venous 26.9 mmol/L (24.0-30.0); PCO2 Venous 46.3 mmHg (38-42); pH Blood Venous 7.39 (7.34-7.37)
[2023-01-10 00:40] LABS: Appearance, Urine Cloudy (Clear); Color, Urine Yellow (P-Yellow)
[2023-01-10 00:41] LABS: Bacteria Many /hpf; Red Blood Cells, Urine 0-2 /hpf (0-2); Squamous Epithelial Cells Mod /hpf (Few); White Blood Cells, Urine 25-50 /hpf (0-5)
[2023-01-10 00:45] LABS: Albumin/Globulin Ratio 1.2 (0.8-1.8); Bilirubin, Total 0.4 mg/dL (0.1-1.0); Bun/Creatinine Ratio 20.7 (12.0-20.0); Calcium, Blood 9.3 mg/dL (8.5-10.1); Creatinine, Blood 0.73 mg/dL (0.40-1.00); Globulin, Blood 3.3 g/dL (2.2-4.0); Potassium, Blood 4.6 mmol/L (3.5-5.5); Total Protein, Blood 7.3 g/dL (6.4-8.2)
[2023-01-10 02:16] LABS: Source, Urine Foley catheter
[2023-01-10 02:18] LABS: Bilirubin, Urine Neg (Neg); Blood, Urine 1+ (Neg); Glucose Qualitative, Urine Neg (Neg); Ketones, Urine Neg (Neg); Leukocyte Esterase, Urine 2+ (Neg); Nitrite, Urine Neg (Neg); Protein, Urine 1+ (Neg); Specific Gravity, Urine 1.015 (1.003-1.022); Urobilinogen, Urine NORM (Normal); pH, Urine 6.5 (5.0-8.0)
[2023-01-10 02:28] LABS: U Amphetamine Screen Not Detected; U Methamphetamine Screen Not Detected
[2023-01-10 02:29] LABS: U Barbituate Screen Not Detected; U Benzodiazapine Screen Not Detected; U Buprenorphine Screen Not Detected; U Cannabinoids Screen Not Detected; U Cocaine Screen Not Detected; U Methadone Screen Not Detected; U Opiates Screen Not Detected; U Oxycodone Screen Not Detected; U Phencyclidine Screen Not Detected; U Propoxyphene Screen Not Detected
[2023-01-10 02:33] LABS: Appearance, Urine Hazy (Clear); Color, Urine Yellow (P-Yellow)
[2023-01-10 02:35] LABS: Bacteria Many /hpf; Squamous Epithelial Cells Not Seen /hpf (Few); White Blood Cells, Urine 25-50 /hpf (0-5)
[2023-01-10 03:29] LABS: BASOPHILS ABSOLUTE AUTO 0.09 K/mm3 (0.00-0.23); BASOPHILS PERCENT AUTO 1 % (0-2); EOSINOPHILS ABSOLUTE AUTO 0.44 K/mm3 (0.00-0.68); EOSINOPHILS PERCENT AUTO 3 % (0-6); Hematocrit 31.6 % (33.0-51.0); Hemoglobin 11.4 g/dL (11.5-16.0); IMMATURE GRAN ABSOLUTE AUTO 0.04 K/mm3 (0.00-0.10); IMMATURE GRAN PERCENT AUTO 0 % (0-1); LYMPHOCYTES ABSOLUTE AUTO 2.02 K/mm3 (0.84-5.20); LYMPHOCYTES PERCENT AUTO 15 % (21-46); MONOCYTES ABSOLUTE AUTO 1.02 K/mm3 (0.16-1.47); MONOCYTES PERCENT AUTO 8 % (4-13); Mean Corpuscular HGB 30.4 pg (26.0-34.0); Mean Corpuscular HGB Conc 36.1 g/dL (31.5-36.5); Mean Corpuscular Volume 84 fL (80-100); Mean Platelet Volume 8.2 fL (9.1-12.4); NEUTROPHILS ABSOLUTE AUTO 9.48 K/mm3 (1.96-9.15); NEUTROPHILS PERCENT AUTO 72 % (41-73); Platelet Count 501 K/mm3 (150-400); RDW Coefficient Variation 11.9 % (11.7-14.2); RDW Standard Deviation 36.4 fL (35.1-46.3); Red Blood Cell Count 3.75 M/mm3 (3.80-5.20); White Blood Cell Count 13.09 K/mm3 (4.00-11.30)
[2023-01-10 04:16] VITALS: BP 170/86
--- NOTE | 2023-01-10 05:07 | NUR ---
EOS NOTE: PATIENT ARRIVED TO THE FLOOR 0345, A/OX4, NOT A GREAT HISTORIAN, UNABLE TO GIVE MEDICATION HISTORY SHE ONLY KNOWS MEDS BY SHAPE/COLOR. HAS PAEDIATRIC PHYSIOTHERAPIST AT HOME FIVE DAYS A WEEK, FIVE HOURS PER DAY. BUE WEAK AND FLACCID, BLE RLS AND ARE VERY ACTIVE. SHANE IN PLACE, ADEQUATE OUTPUT. MRI CHECKLIST COMPLETE, PATIENT REFUSED SCD MACHINE LEGS ARE UNCONTROLED AND ACTIVE, PT WORRIES IT COULD BE A HAZARD. PAEDIATRIC PHYSIOTHERAPIST, LAWSON, TO BRING IN MEDICATION LIST DURING DAYTIME. VSS, SBP > R/T PATIENT MOVEMENT. WILL CONTINUE TO MONITOR.
[2023-01-10 05:40] LABS: Magnesium, Blood 1.6 mg/dL (1.6-2.4)
[2023-01-10 05:41] LABS: Albumin, Blood 3.7 g/dL (3.4-5.0); Albumin/Globulin Ratio 1.1 (0.8-1.8); Bilirubin, Total 0.3 mg/dL (0.1-1.0); Bun/Creatinine Ratio 20.5 (12.0-20.0); Calcium, Blood 8.8 mg/dL (8.5-10.1); Creatinine, Blood 0.64 mg/dL (0.40-1.00); Globulin, Blood 3.4 g/dL (2.2-4.0); Potassium, Blood 4.8 mmol/L (3.5-5.5); Total Protein, Blood 7.1 g/dL (6.4-8.2)
[2023-01-10 07:33] VITALS: BP 182/92
[2023-01-10 16:44] VITALS: BP 167/89
[2023-01-10 18:13] LABS: U Amphetamine Screen Not Detected; U Barbituate Screen Not Detected; U Benzodiazapine Screen Not Detected; U Buprenorphine Screen Not Detected; U Cannabinoids Screen Not Detected; U Cocaine Screen Not Detected; U Methadone Screen Not Detected; U Methamphetamine Screen Not Detected; U Opiates Screen Not Detected; U Oxycodone Screen Not Detected; U Phencyclidine Screen Not Detected; U Propoxyphene Screen Not Detected
--- NOTE | 2023-01-10 18:29 | NUR ---
SHIFT SUMMARY- PT IS A/O, PLESANT AND COOPERATIVE. HER SHANE IS PATIENT AND DRAINING. SHE C/O OF WEAKNESS AND NUMBNESS IN HER ARMS. PAIN MEDICATION ORDERED FOR LEG PAIN. SCD'S APPLIED TO PT. AFTER SCHOOL TEACHER CAME TO SEE THE PT TODAY. ADAPT CAME REQUESTING TO COLLECT A URINE SAMPLE ON PT. SPOKE TO PROVIDER ABOUT THE SITUATION. ORDERED IN HOUSE TOXIC SCREEN. ST SAW THIS PT AFTER SHE ASPIRATED ON A CARROT DURING LUNCH. DIET ORDER CHANGED TO [facility] SOFT. HER BED IS IN THE LOW POSITION AND CALL LIGHT IS WITIN REACH.
[2023-01-10 19:32] VITALS: BP 162/95
[2023-01-10] MEDS ORDERED: VENL75ER PO (21:56)
[2023-01-10] MEDS ORDERED: BACL20 PO (21:56)
[2023-01-10] MEDS ORDERED: GABA100 PO (21:57)
[2023-01-10] MEDS ORDERED: NAPROXEN500 MG PO (21:59)
[2023-01-10] MEDS ORDERED: ONDA4 PO (22:02)
[2023-01-10] MEDS ORDERED: Cetirizine HCl10 MG PO (22:02)
[2023-01-10] MEDS ORDERED: PEPCID40 MG PO (22:05)
[2023-01-10] MEDS ORDERED: DICLOFENAC SOD100 G1 TOP (22:06)
[2023-01-11 05:29] VITALS: BP 164/93
--- NOTE | 2023-01-11 05:34 | NUR ---
SHIFT SUMMARY NOC PT A/O X 4. PLEASANT AND COOPERATIVE WITH CARE. NO ACUTE CHANGES TO REPORT. PT HAS SHANE IN PLACE DRAINING TO GRAVITY. PT RECEIVING ABX FOR UTI. PT HAD C/O OF PAIN IN BLE/BACK AND WAS MEDICATED PER EMAR. PT REPORTED HAVING TROUBLE FALLING ASLEEP AND ORDER FOR MELATONIN OBTAINED. PT EDUCATED ON [facility] IGNITION/EXPLOSIVES NON SMOKING SAFETY POLICY AND UNDERSTOOD MATERIAL. PT IS CURRENTLY RESTING WITH BED IN LOWEST POSITION, AND CALL LIGHT WITHIN REACH.
[2023-01-11 06:09] LABS: BASOPHILS ABSOLUTE AUTO 0.05 K/mm3 (0.00-0.23); BASOPHILS PERCENT AUTO 0 % (0-2); EOSINOPHILS ABSOLUTE AUTO 0.28 K/mm3 (0.00-0.68); EOSINOPHILS PERCENT AUTO 2 % (0-6); Hematocrit 34.6 % (33.0-51.0); Hemoglobin 12.5 g/dL (11.5-16.0); IMMATURE GRAN ABSOLUTE AUTO 0.05 K/mm3 (0.00-0.10); IMMATURE GRAN PERCENT AUTO 0 % (0-1); LYMPHOCYTES ABSOLUTE AUTO 1.54 K/mm3 (0.84-5.20); LYMPHOCYTES PERCENT AUTO 14 % (21-46); MONOCYTES ABSOLUTE AUTO 0.81 K/mm3 (0.16-1.47); MONOCYTES PERCENT AUTO 7 % (4-13); Mean Corpuscular HGB Conc 36.1 g/dL (31.5-36.5); Mean Corpuscular Volume 83 fL (80-100); Mean Platelet Volume 8.4 fL (9.1-12.4); NEUTROPHILS ABSOLUTE AUTO 8.71 K/mm3 (1.96-9.15); NEUTROPHILS PERCENT AUTO 76 % (41-73); Platelet Count 573 K/mm3 (150-400); RDW Coefficient Variation 11.9 % (11.7-14.2); RDW Standard Deviation 35.9 fL (35.1-46.3); Red Blood Cell Count 4.17 M/mm3 (3.80-5.20); White Blood Cell Count 11.44 K/mm3 (4.00-11.30)
[2023-01-11 06:58] LABS: Albumin, Blood 3.7 g/dL (3.4-5.0); Bilirubin, Total 0.3 mg/dL (0.1-1.0); Bun/Creatinine Ratio 14.5 (12.0-20.0); Calcium, Blood 9.8 mg/dL (8.5-10.1); Creatinine, Blood 0.69 mg/dL (0.40-1.00); Globulin, Blood 3.7 g/dL (2.2-4.0); Potassium, Blood 4.5 mmol/L (3.5-5.5); Total Protein, Blood 7.4 g/dL (6.4-8.2)
[2023-01-11 07:17] VITALS: BP 168/95
[2023-01-11 13:59] LABS: C-REACTIVE PROTEIN, EXT RANGE <0.290 mg/dL (0.000-0.300)
[2023-01-11 14:05] LABS: Free Thyroxine 1.09 ng/dL (0.70-1.60)
[2023-01-11 14:24] LABS: Total Protein, Blood 7.3 g/dL (6.4-8.2); Triiodothyronine, Free 1.21 pg/mL (2.18-3.98)
[2023-01-11 16:30] VITALS: BP 180/87
[2023-01-11 16:37] VITALS: BP 180/87
--- NOTE | 2023-01-11 17:02 | NUR ---
SHIFT SUMMARY: Pt remains A&O x3 this shift. VSS, repositioned for comfort. Esquivel intact with yellow output. No acute changes noted. Will continue to monitor.
[2023-01-11 23:19] VITALS: BP 181/94
[2023-01-12] VITALS (8 sets, daily range): BP systolic 172–193; BP diastolic 74–96
--- NOTE | 2023-01-12 05:09 | NUR ---
SHIFT SUMMARY: PATIENT A&OX4. ANSWER TO QUESTIONS APPROPRIATELY. PLEASANT AND COOPERATIVE c CARE. USES CALL LIGHT APPROPRIATELY AND ABLE TO MAKE NEEDS KNOWN. PATIENT REPORTS PAIN / TO BUE AND BLE'S. MEDICATED X1 c IV FENTANYL c ADEQUATE RELIEF. REPOSITIONED AND SLEPT WELL T/O SHIFT. SHANE PATENT DRAINING YELLOW URINE TO GRAVITY c THE TOTAL URINE OUTPUT OF 1300 MLS THIS SHIFT. HYPERTENSIVE. RECEIVED SCHEDULED MEDS PER EMAR. PIV TO L HAND SALINE LOCKED. CALL LIGHT IN REACH.
[2023-01-12 05:39] LABS: BASOPHILS ABSOLUTE AUTO 0.05 K/mm3 (0.00-0.23); BASOPHILS PERCENT AUTO 0 % (0-2); EOSINOPHILS ABSOLUTE AUTO 0.04 K/mm3 (0.00-0.68); EOSINOPHILS PERCENT AUTO 0 % (0-6); Hematocrit 33.4 % (33.0-51.0); Hemoglobin 12.2 g/dL (11.5-16.0); IMMATURE GRAN ABSOLUTE AUTO 0.17 K/mm3 (0.00-0.10); IMMATURE GRAN PERCENT AUTO 1 % (0-1); LYMPHOCYTES ABSOLUTE AUTO 1.24 K/mm3 (0.84-5.20); LYMPHOCYTES PERCENT AUTO 5 % (21-46); MONOCYTES ABSOLUTE AUTO 1.84 K/mm3 (0.16-1.47); MONOCYTES PERCENT AUTO 7 % (4-13); Mean Corpuscular HGB 30.1 pg (26.0-34.0); Mean Corpuscular HGB Conc 36.5 g/dL (31.5-36.5); Mean Corpuscular Volume 83 fL (80-100); NEUTROPHILS PERCENT AUTO 87 % (41-73); Platelet Count 580 K/mm3 (150-400); RDW Coefficient Variation 11.9 % (11.7-14.2); RDW Standard Deviation 35.8 fL (35.1-46.3); Red Blood Cell Count 4.05 M/mm3 (3.80-5.20); White Blood Cell Count 25.24 K/mm3 (4.00-11.30)
[2023-01-12 06:27] LABS: Bun/Creatinine Ratio 17.2 (12.0-20.0); Calcium, Blood 9.5 mg/dL (8.5-10.1); Creatinine, Blood 0.58 mg/dL (0.40-1.00); Potassium, Blood 4.5 mmol/L (3.5-5.5)
[2023-01-12 08:11] LABS: COMPLEMENT C3, SERUM 103 mg/dL (82-167)
--- NOTE | 2023-01-12 15:54 | NUR ---
B/P HIGH. TEMP 101.9. NO TYLENOL AVAIL. CALLED DR FORDE. ORDERS FOR HYDRALAZINE 10 MG IV Q6P FOR >175 SBP. STATES LET TEMP RIDE, CALL IF >103. FAN PLACED IN ROOM.
--- NOTE | 2023-01-12 17:22 | NUR ---
PT STATES FEELS JUST OFF. FUNNY, STATES H/R IN EARS. RECHECK B/P SHOWS 192/96 . HYDRALAZINE WAS GIVEN LAST HOUR. RT LEG IS PULLING UP, CONTRACTIING, I CAN GENTLY STRAIGHTEN HER LEG, BUT IS PULLS RIGHT BACK UP. PT STATES THIS IS NEW. CALLED DR FORDE. NA. CALLED DR RAMOS. HE TO COME SEE PT.
--- NOTE | 2023-01-12 18:46 | NUR ---
PT PLEASANT COOP TODAY. DENIES FLAMABLE ITEMS IN ROOM. PAIN MANAGED WITH AVAIL MEDS. B/P UP THIS AFT. SPOKE TO DR FORDE, HYDRAL ORDERED. FAN GIVEN FOR TEMP. DR MORROW KEEP IVF GOING FOR SODIUM REPLENISHMENT. PT LATER C/O FEELING OFF. LIGHT HEADED. ALSO THAT LEG TAD. UNABLE TO RE-EXTEND, ALSO B/P INCREASED AGAIN AFTER HYDRALAZINE. CALLED. DR RAMOS HE ABLE TO COME TO ROOM. NO NEW ORDERS GIVEN. NO OTHER CONCERNS NOTED. BED IN LOW POSITION, CALL LITE IN REACH, CALLS APROP
--- NOTE | 2023-01-13 01:04 | NUR ---
NOTE: PATIENT HAS BEEN HAVING SMEAR BM THIS SHIFT. PATIENT REPORTS NO GOOD BM FOR ABOUT A WEEK NOW AND REQUESTING SUPPOSITORY. CALLED DR. GEORGE TO REPORTS PATIENT ISSUES AND REQUEST. PER DR. GEORGE HE WILL PUT THE ORDER IN.
[2023-01-13 03:03] VITALS: BP 172/100
[2023-01-13 05:37] VITALS: BP 145/77
--- NOTE | 2023-01-13 06:15 | NUR ---
SHIFT SUMMARY: PATIENT A&OX4. CALM, PLEASANT AND COOPERATIVE c CARE. USES CALL LIGHT APPROPRIATELY AND ABLE TO MAKE NEEDS KNOWN. PATIENT REPORTS TIGHTNESS TO ABDOMEN AND NO GOOD BM FOR ABOUT A WEEK. OPHELIA WARM PRUNE JUICE c BUTTER, SCHEDULED BOWEL MEDS AND OT DOSE RECTAL SUPP. PATIENT HAD 2 SMALL AND 1 MIDIUM FORMED BROWN BM THIS SHIFT. ATTENDS CHANGED AND REPOSITIONED T/O SHIFT. SHANE PATENT DRAINING YELLOW URINE TO GRAVITY c A TOTAL URINE OUTPUT OF 3,050 MLS. VITAL SIGNS REVIEWED. PIV TO R FOREARM INFUSING NS 150 MLS/HR. SCD'S TO BLE'S IN PLACED. BED ALARM ON FOR SAFETY. CALL LIGHT IN REACH.
[2023-01-13 06:31] LABS: Hematocrit 31.6 % (33.0-51.0); Hemoglobin 11.5 g/dL (11.5-16.0); Mean Corpuscular HGB 30.3 pg (26.0-34.0); Mean Corpuscular HGB Conc 36.4 g/dL (31.5-36.5); Mean Corpuscular Volume 83 fL (80-100); Mean Platelet Volume 8.4 fL (9.1-12.4); Platelet Count 558 K/mm3 (150-400); RDW Coefficient Variation 12.2 % (11.7-14.2); Red Blood Cell Count 3.79 M/mm3 (3.80-5.20); White Blood Cell Count 26.87 K/mm3 (4.00-11.30)
[2023-01-13 06:54] LABS: Bun/Creatinine Ratio 18.9 (12.0-20.0); Creatinine, Blood 0.53 mg/dL (0.40-1.00); Potassium, Blood 3.9 mmol/L (3.5-5.5)
[2023-01-13 07:03] LABS: BAND PERCENT MAN 4 % (0-8); BASOPHILS PERCENT MAN 0 % (0-2); EOSINOPHILS PERCENT MAN 0 % (0-6); LYMPHOCYTES ABSOLUTE MAN 0.53 K/mm3 (0.84-5.20); LYMPHOCYTES PERCENT MAN 2 % (21-46); MONOCYTES ABSOLUTE MAN 1.07 K/mm3 (0.16-1.47); MONOCYTES PERCENT MAN 4 % (4-13); NEUTROPHILS ABSOLUTE MAN 25.25 K/mm3 (1.96-9.15); SEG NEUTROPHILS PERCENT MAN 90 % (41-73); TOTAL CELLS COUNTED 100
[2023-01-13 07:48] VITALS: BP 193/93
[2023-01-13 08:59] LABS: Bun/Creatinine Ratio 20.5 (12.0-20.0); Creatinine, Blood 0.49 mg/dL (0.40-1.00); Potassium, Blood 4.2 mmol/L (3.5-5.5)
[2023-01-13 14:08] LABS: ANTI-DSDNA ANTIBODIES 2 IU/mL (0-9); RNP ANTIBODIES 0.3 AI (0.0-0.9); SJOGREN'S ANTI-SS-A 0.5 AI (0.0-0.9); SJOGREN'S ANTI-SS-B <0.2 AI (0.0-0.9); SMITH ANTIBODIES <0.2 AI (0.0-0.9)
[2023-01-13 15:55] VITALS: BP 190/95
--- NOTE | 2023-01-13 17:55 | NUR ---
PT PLEASANT TODAY. DR DID ADJUST HTN MEDS TODAY. NEW DOSE GIVEN 1600. WILL MONITOR. GAVE PAIN MED ALSO. IS PRESENTLY RESTING, RESP EASY, UNLABORED. PT STATES DID USED TO WORK AT [employer]. NO NEW CONCERNS NOTED. BED IN LOW POSITION, CALL LITE IN REACH, CALLS APPROP
[2023-01-13 18:21] VITALS: BP 198/104
[2023-01-13 19:13] VITALS: BP 152/90
[2023-01-14 03:25] VITALS: BP 118/62
[2023-01-14 05:54] LABS: BASOPHILS ABSOLUTE AUTO 0.05 K/mm3 (0.00-0.23); BASOPHILS PERCENT AUTO 0 % (0-2); EOSINOPHILS ABSOLUTE AUTO 0.08 K/mm3 (0.00-0.68); EOSINOPHILS PERCENT AUTO 0 % (0-6); Hematocrit 30.4 % (33.0-51.0); Hemoglobin 10.8 g/dL (11.5-16.0); IMMATURE GRAN PERCENT AUTO 1 % (0-1); LYMPHOCYTES ABSOLUTE AUTO 1.29 K/mm3 (0.84-5.20); LYMPHOCYTES PERCENT AUTO 7 % (21-46); MONOCYTES ABSOLUTE AUTO 1.29 K/mm3 (0.16-1.47); MONOCYTES PERCENT AUTO 7 % (4-13); Mean Corpuscular HGB 29.8 pg (26.0-34.0); Mean Corpuscular HGB Conc 35.5 g/dL (31.5-36.5); Mean Corpuscular Volume 84 fL (80-100); Mean Platelet Volume 8.3 fL (9.1-12.4); NEUTROPHILS ABSOLUTE AUTO 15.73 K/mm3 (1.96-9.15); NEUTROPHILS PERCENT AUTO 85 % (41-73); Platelet Count 542 K/mm3 (150-400); RDW Standard Deviation 36.7 fL (35.1-46.3); Red Blood Cell Count 3.63 M/mm3 (3.80-5.20); White Blood Cell Count 18.54 K/mm3 (4.00-11.30)
--- NOTE | 2023-01-14 06:45 | NUR ---
SHIFT SUMMARY: PATIENT A&OX4. PLEASANT AND COOPERATIVE c CARE. USES CALL LIGHT APPROPIATELY AND ABLE TO MAKE NEEDS KNOWN. AT BEGINNING OF SHIFT PATIENT REPORTS SOB O2 DOWN TO 88% ON RA. PATIENT WAS PLACED ON 1L OF O2 VIA NC AND O2 WENT UP TO 91%. PATIENT HAS BEEN USING O2 SINCE SPO2 RANGES 90-94% ON 1L. DENIES CP/PRESSURE, N/V. REPORTS PAIN 7/10 TO BLE'S. MEDICATED X1 c IV FENTANYL. PER PATIENT PAIN DOWN TO 3/10. PATIENT HAD 2 LARGE FORMED BROWN BM THIS SHIFT. ATTENDS CHANGED AND REPOSITIONED T/O SHIFT. SHANE PATENT DRAINING YELLOW URINE TO GRAVITY c TOTAL URINE OUTPUT OF 1,750 MLS THIS SHIFT. PIV TO R FOREARM INFUSING NS AT 150 MLS/HR. SCD'S IN PLACED TO BLE'S. VITAL SIGNS REVIEWED. RECEIVED SCHEDULED MEDS PER EMAR. BED ALARM ON FOR SAFETY. CALL LIGHT IN REACH.
[2023-01-14 08:09] VITALS: BP 170/93
[2023-01-14 10:48] LABS: Bun/Creatinine Ratio 15.7 (12.0-20.0); Calcium, Blood 8.7 mg/dL (8.5-10.1); Creatinine, Blood 0.51 mg/dL (0.40-1.00); Potassium, Blood 3.8 mmol/L (3.5-5.5)
[2023-01-14 15:01] VITALS: BP 176/90
[2023-01-14 17:13] VITALS: BP 176/90
--- NOTE | 2023-01-14 19:30 | NUR ---
RN/ DAY SHIFT SUMMARY ASSUMED CARE VIA MEDFLOOR NURSE AT BEDSIDE. ASSESSMENT REVEALED WORSENING SYMPTOMS NEUROLOGICALLY WITH RESPIRATORY INVOLVEMENT. THE PATIENT STATES THAT SHE IS HAVING DIFFICULTIES WITH CLEARING HER AIR WAY AND REQUIRED CONSULT WITH DR. FORDE. THE PATIENT WAS THEN PREPARED FOR A [facility]RA FLIGHT TO [facility]. AND VISITED BY RT FOR DEEP SUCTION. NIGHT NURSE ASSUMED CARE WITH BEDSIDE REPORT.
--- NOTE | 2023-01-14 19:36 | NUR ---
PROVIDER CONSULT PROVIDER WAS NOTIFIED AND CONSULTED REGARDING HTN WITH PAIN IN THE LEGS AND POOR AIR WAY CLEARING. THE PROVIDER REQUESTED ORDERS VERBALLY FOR RT CONSULT WITH DEEP SUCTIONING. 25 MG FENTENYL AND COBRA TRANSFER FOR HIGHER ACUITY OF CARE.
[2023-01-14 19:48] VITALS: BP 174/77
[2023-01-14 20:00] VITALS: BP 168/84
--- NOTE | 2023-01-14 21:40 | NUR ---
CHARORA TRANSFER PT A/OX4 ON 2L SVITLANA ROGERS PATENT AND DRAINING, 20G TO RBryce CHEN. REPORT GIVEN TO [facility], PT TO BE TRANSFERRED TO [facility] FOR HIGHER LEVEL OF CARE. REPORT GIVEN TO JUDI AT [facility]. BELONGINGS WELL NERVE STIMULATOR REMOTE AND CHARGING INSTRUCTIONS SENT WITH PT'S DAUGHTER.
[2023-01-15 13:09] LABS: ANTIMYELOPEROXIDASE (MPO) ABS 0.3 units (0.0-0.9); ANTIPROTEINASE 3 (PR-3) ABS <0.2 units (0.0-0.9); ATYPICAL PANCA <1:20 titer (Neg:<1:20); CYTOPLASMIC (C-ANCA) <1:20 titer (Neg:<1:20); PERINUCLEAR (P-ANCA) <1:20 titer (Neg:<1:20)
== END 2023-01-14 21:02 | disposition short-term general hospital (02) | DRG 690 ==
LOC: ER 23:13 → MEDS 23:14 → PCU 01-14 15:24
PROVIDERS: Emergency Medicine; Family Medicine; Hospitalist; Student in an Organized Health Care Education/Training Program; ADMIT Student in an Organized Health Care Education/Training Program
PROC: 0T9B70Z Drainage of Bladder with Drainage Device, Via Natural or Artificial Opening (ICD-10-PCS; principal; 2023-01-10)
DX: N39.0 Urinary tract infection, site not specified (principal); E87.1 Hypo-osmolality and hyponatremia; J98.11 Atelectasis; J44.9 Chronic obstructive pulmonary disease, unspecified; E03.9 Hypothyroidism, unspecified; F32.A Depression, unspecified; K21.9 Gastro-esophageal reflux disease without esophagitis; F17.210 Nicotine dependence, cigarettes, uncomplicated; I12.9 Hypertensive chronic kidney disease with stage 1 through stage 4 chronic kidney disease, or unspecified chronic kidney disease; K59.09 Other constipation; N18.9 Chronic kidney disease, unspecified; R33.9 Retention of urine, unspecified; G89.29 Other chronic pain; R45.1 Restlessness and agitation; B96.20 Unspecified Escherichia coli [E. coli] as the cause of diseases classified elsewhere; D63.1 Anemia in chronic kidney disease; M54.9 Dorsalgia, unspecified; G62.9 Polyneuropathy, unspecified; Z86.19 Personal history of other infectious and parasitic diseases; Z86.73 Personal history of transient ischemic attack (TIA), and cerebral infarction without residual deficits; Z90.49 Acquired absence of other specified parts of digestive tract; Z96.82 Presence of neurostimulator; Z98.890 Other specified postprocedural states; Z79.2 Long term (current) use of antibiotics; Z79.51 Long term (current) use of inhaled steroids; Z79.899 Other long term (current) drug therapy; Z88.8 Allergy status to other drugs, medicaments and biological substances; Z79.890 Hormone replacement therapy; Z91.81 History of falling; Z88.5 Allergy status to narcotic agent; Z98.1 Arthrodesis status
CPT/HCPCS: 31720; 36415; 51701; 51702; 70450; 71045; 71046; 72125; 80048; 80053; 81001; 82607; 82746; 82803; 83516; 83520; 83735; 83880; 84155; 84439; 84443; 84481; 84484; 85025; 85651; 86037; 86140; 86160; 86225; 86235; 87040; 87077; 87086; 87186; 92610; 93005; 93010; 94640; 94664; 94760; 94762; 96365; 96372; 96375; 97110; 97161; 97166; 97530; 99285-25; A9270; G0378; J0360; J0696; J1650; J2310; J2405; J3010; J7030; J7050

== ENCOUNTER → 2024-10-12 | Outpatient (CLI) | payer MEDICARE, OTHER ==
[~2024-10-12] MED LIST changes: +BACL20 PO; +Cipro500 MG PO; +DICLOFENAC SOD100 G1 TOP; +GABA100 PO; +NAPROXEN500 MG PO; +ONDA4 PO; +PEPCID40 MG PO
[2024-10-12 14:48] LABS: Bacterial Vaginosis PCR Negative (NEGATIVE); Candida Group, PCR NOT DETECTED (NOT DETECT)
[2024-10-12 14:51] LABS: Candida glabrata-krusei, PCR DETECTED (NOT DETECT)
== END ==
LOC: LAB 12:04 → LAB SHORT 12:04
PROVIDERS: Obstetrics & Gynecology
DX: N76.0 Acute vaginitis (principal)
CPT/HCPCS: 81515

== ENCOUNTER 2024-12-08 16:36 | Emergency (ER) | payer MEDICARE, OTHER ==
[~2024-12-08] VITALS: Ht 160 cm; Wt 104.3 kg
[2024-12-08 17:38] LABS: BASOPHILS ABSOLUTE AUTO 0.05 K/mm3 (0.00-0.23); BASOPHILS PERCENT AUTO 1 % (0-2); EOSINOPHILS ABSOLUTE AUTO 0.29 K/mm3 (0.00-0.68); EOSINOPHILS PERCENT AUTO 4 % (0-6); Hematocrit 36.7 % (33.0-51.0); IMMATURE GRAN ABSOLUTE AUTO 0.02 K/mm3 (0.00-0.10); IMMATURE GRAN PERCENT AUTO 0 % (0-1); LYMPHOCYTES ABSOLUTE AUTO 2.26 K/mm3 (0.84-5.20); LYMPHOCYTES PERCENT AUTO 28 % (21-46); MONOCYTES ABSOLUTE AUTO 0.74 K/mm3 (0.16-1.47); MONOCYTES PERCENT AUTO 9 % (4-13); Mean Corpuscular HGB 29.4 pg (26.0-34.0); Mean Corpuscular HGB Conc 32.7 g/dL (31.5-36.5); Mean Corpuscular Volume 90 fL (80-100); Mean Platelet Volume 9.2 fL (9.1-12.4); NEUTROPHILS ABSOLUTE AUTO 4.69 K/mm3 (1.96-9.15); NEUTROPHILS PERCENT AUTO 58 % (41-73); Platelet Count 353 K/mm3 (150-400); RDW Coefficient Variation 13.5 % (11.7-14.2); RDW Standard Deviation 44.7 fL (35.1-46.3); Red Blood Cell Count 4.08 M/mm3 (3.80-5.20); White Blood Cell Count 8.05 K/mm3 (4.00-11.30)
[2024-12-08 18:02] LABS: Albumin, Blood 3.8 g/dL (3.4-5.0); Bilirubin, Total 0.3 mg/dL (0.1-1.0); Bun/Creatinine Ratio 20.4 (12.0-20.0); Calcium, Blood 9.6 mg/dL (8.5-10.1); Creatinine, Blood 0.93 mg/dL (0.40-1.00); Globulin, Blood 3.9 g/dL (2.2-4.0); Total Protein, Blood 7.7 g/dL (6.4-8.2)
[2024-12-08 18:31] LABS: Free Thyroxine 1.39 ng/dL (0.70-1.60); Triiodothyronine, Free 2.54 pg/mL (2.18-3.98)
[2024-12-08 18:48] LABS: Thyroid Stimulating Hormone 0.585 uIU/mL (0.360-4.800)
[2024-12-08 19:10] LABS: Source, Urine Clean Catch
[2024-12-08 19:15] LABS: Appearance, Urine Clear (Clear); Bilirubin, Urine Neg (Neg); Blood, Urine Neg (Neg); Color, Urine Yellow (P-Yellow); Glucose Qualitative, Urine Neg (Neg); Ketones, Urine Neg (Neg); Leukocyte Esterase, Urine Neg (Neg); Nitrite, Urine Neg (Neg); Protein, Urine Neg (Neg); Urobilinogen, Urine NORM (Normal)
[2024-12-08] MEDS ORDERED: Ketorolac Tromethamine 15mg Vial IV ONE (20:10)
[2024-12-08 20:30] VITALS: BP 156/91
== END 2024-12-08 20:30 | disposition home or self-care (01) ==
LOC: ER 16:36
PROVIDERS: Emergency Medicine; Student in an Organized Health Care Education/Training Program
DX: R51.9 Headache, unspecified (principal); R53.83 Other fatigue; I10 Essential (primary) hypertension; J44.9 Chronic obstructive pulmonary disease, unspecified; E03.9 Hypothyroidism, unspecified; K21.9 Gastro-esophageal reflux disease without esophagitis; F17.210 Nicotine dependence, cigarettes, uncomplicated; Z86.73 Personal history of transient ischemic attack (TIA), and cerebral infarction without residual deficits; Z88.5 Allergy status to narcotic agent; Z88.6 Allergy status to analgesic agent; Z88.8 Allergy status to other drugs, medicaments and biological substances; Z79.1 Long term (current) use of non-steroidal anti-inflammatories (NSAID); Z79.890 Hormone replacement therapy; Z79.899 Other long term (current) drug therapy
CPT/HCPCS: 70450; 80053; 81003; 84439; 84443; 84481; 85025; 93005; 93010; 96374; 99285-25; J1885